=== PATIENT | female | born 1940 | race Caucasian/White ===

== ENCOUNTER → 2019-04-07 | Outpatient (CLI) | payer MEDICARE, BC ==
--- NOTE | 2019-04-07 13:26 | MM ---
Reason for exam: screening (asymptomatic). Last mammogram was performed 2 years and 9 months ago. History: Patient is postmenopausal, history of other cancer, and is nulliparous. Took estrogen for 34 years 4 months. Physical Findings: A clinical breast exam by your physician is recommended on an annual basis and results should be correlated with mammographic findings. MG 3D Screening Mammo W/Cad Bilateral CC and MLO view(s) were taken. Prior study comparison: July 02, 2016, bilateral MG 3d screening mammo w/cad. July 14, 2014, bilateral MG screening mammo w CAD. The breast tissue is heterogeneously dense. This may lower the sensitivity of mammography. There are benign appearing round vascular calcifications in the left breast. There is no discrete abnormality. ASSESSMENT: Benign, BI-RAD 2 RECOMMENDATION: Routine screening mammogram of both breasts in 1 year.
== END | disposition home or self-care (01) ==
LOC: RADMAMWWP 08:24
PROVIDERS: ATTEND Internal Medicine
DX: Z12.31 Encounter for screening mammogram for malignant neoplasm of breast (principal)
CPT/HCPCS: 77063; 77067

== ENCOUNTER → 2020-05-02 | Outpatient (CLI) | payer MEDICARE, BC ==
--- NOTE | 2020-05-02 09:58 | BD ---
EXAMINATION TYPE: Axial Bone Density DATE OF EXAM: 05/02/2020 COMPARISON: 07.02.2016 CLINICAL HISTORY: 79 YR OLD FEMALE....ICD-10 CODE: M85.9 DISORDER OF BONE Height: 60.8 Weight: 115 FRAX RISK QUESTIONS: Family History (Parent hip fracture): YES, BUT NO FX History of Fracture in Adulthood: YES Secondary Osteoporosis: YES 3. Menopause before 45: YES SURGICAL AT AGE 30 RISK FACTORS HISTORY OF: HX OF TIBIAL PLATEAU FX....AT ABOUT 58 YRS OLD Family History of Osteoporosis: YES, MOTHER AND SISTER, NO FX OF HIP Postmenopausal woman: YES, ABOUT AGE 30, SURGICAL Take estrogen and/or progesterone medications: YES FOR ABOUT 30 YRS STOPPED 10 YRS AGO Hyperparathyroidism: NO Adrenal Insufficiency: NO MEDICATIONS: Osteoporosis Medications: IN THE PAST FOSAMAX FOR ABOUT 5 YRS NOTHING NOW Additional Medications: STATIN FOR CHOLESTEROL, CALCIUM Additional History: NOTHING ADDITIONAL TO ADD HERE EXAM MEASUREMENTS: Bone mineral densitometry was performed using the [employer] System. Bone mineral density as measured about the Lumbar spine is: ----- L1-L4(G/cm2): 1.191 T Score Values are as follows: ----- L1: -1.7 ----- L2: -0.3 ----- L3: 1.4 ----- L4: 1.0 ----- L1-L4: 0.1 Bone mineral density has: Increased 4.2% since study of: 07.02.2016 Bone mineral density about the R hip (g/cm2): 0.890 Bone mineral density about the L hip (g/cm2): 0.942 T Score values are as follows: -----R Neck: -0.6 -----L Neck: -0.2 -----R Total: -0.9 -----L Total: -0.5 Bone mineral density has: Increased 0.3% since study of: 07.02.2016 FRAX%s: THERE IS A 13.2% CHANCE FOR A MAJOR OSTEOPOROTIC FX AND A 1.8% FOR HIP......PROBABILITY FO R FX IN 10 YRS TIME IMPRESSION: No evidence for osteoporosis or osteopenia. NOTE: T-SCORE=SD OF THE YOUNG ADULT MEAN.
== END | disposition home or self-care (01) ==
LOC: RADBDWWP 07:55
PROVIDERS: ATTEND Internal Medicine
DX: M85.9 Disorder of bone density and structure, unspecified (principal)
CPT/HCPCS: 77080

== ENCOUNTER → 2023-06-02 | Outpatient (CLI) | payer MEDICARE, BC ==
--- NOTE | 2023-06-02 20:09 | BD ---
EXAMINATION TYPE: Axial Bone Density DATE OF EXAM: 06/02/2023 CLINICAL HISTORY: 82 years old Female. ICD-10 CODE: M85.88 DISORDER OF BONE DENSITY Height: 5 ft 1 in Weight: 109 FRAX RISK QUESTIONS: Alcohol (3 or more units per day): no Family History (Parent hip fracture): no Glucocorticoids (More than 3mos): no (Ex: prednisone, prednisolone, methylprednisolone, dexamethasone, and hydrocortisone). History of Fracture in Adulthood: yes Secondary Osteoporosis: 1. Type 1 Diabetes: no 2. Hyperthyroidism: no 3. Menopause before 45: yes 4. Malnutrition: no 5. Chronic liver disease: no Rheumatoid Arthritis: no Current Tobacco Use: no RISK FACTORS HISTORY OF: Surgery to Spine/Hip(right/left)/Wrist (right/left): no Family History of Osteoporosis: yes Active: yes Diet low in dairy products/other sources of calcium: no Postmenopausal woman: yes Take estrogen and/or progesterone medications: none now Lost more than 2 inches in height since high school: no Frequent falls: no Poor Health: good Hyperparathyroidism: no Adrenal Insufficiency: no MEDICATIONS: Additional Medications: Atorvastatin, Additional History: EXAM MEASUREMENTS: Bone mineral densitometry was performed using the [employer]. Bone mineral density as measured about the Lumbar spine is: ----- L1-L4(G/cm2): 1.214 T Score Values are as follows: ----- L1: -1.8 ----- L2: -1.2 ----- L3: 0.9 ----- L4: 2.2 ----- L1-L4: 0.3 Z Score Values are as follows: ----- L1: 0.6 ----- L2: 1.2 ----- L3: 3.3 ----- L4: 4.6 ----- L1-L4: 2.6 Bone mineral density has: increased 1.9 % since study of: 2019 Bone mineral density about the R hip (g/cm2): 0.949 Bone mineral density about the L hip (g/cm2): 0.952 T Score values are as follows: -----R Neck: -0.6 -----L Neck: -0.6 -----R Total: -1.5 -----L Total: -1.1 Z Score values are as follows: -----R Neck: 1.9 -----L Neck: 1.9 -----R Total: 0.9 -----L Total: 1.3 Bone mineral density has: decreased -7.3 % since study of: 2019 FRAX%s: The graph provided illustrates a 13.4 % chance for a major osteoporotic fx and a 2.2 % chance for the hips probability for fx in 10 years time. IMPRESSION: Osteopenia (T Score between -2.5 and -1). There is slightly increased risk of fracture and the patient may be considered for treatment. Re-Screen 2-5 years. NOTE: T-SCORE=SD OF THE YOUNG ADULT MEAN.
--- NOTE | 2023-06-03 08:47 | MM ---
Reason for Exam: Screening (asymptomatic). Last mammogram was performed 4 year(s) and 2 month(s) ago. Patient History: Menarche at age 13. Patient has no children. Left ovary removed at age 31. Right ovary removed at age 31. Hysterectomy at age 31. Postmenopausal. Other cancer. Estrogen for 34 years, 4 months, until age 71. Risk Values: Sofi 5 year model risk: 2.0%. NCI Lifetime model risk: 3.1%. Prior Study Comparison: 07/14/2014 Bilateral Screening Mammogram, [facility]. 07/02/2016 Bilateral Screening Mammogram, [facility]. 04/07/2019 Bilateral Screening Mammogram, [facility]. Tissue Density: The breast tissue is heterogeneously dense. This may lower the sensitivity of mammography. Findings: Analyzed By CAD. There is no suspicious group of microcalcifications or new suspicious mass. Benign-appearing calcifications bilaterally. Overall Assessment: Benign, BI-RAD 2 Management: Screening Mammogram of both breasts in [address] [facility] will attempt to contact patient to return for supplemental views and ultrasound if indicated. Patient should continue monthly self-breast exams. A clinical breast exam by your physician is recommended on an annual basis. This exam should not preclude additional follow-up of suspicious palpable abnormalities. Note on Sofi scores and lifetime risk: 1. A Sofi score greater than 3% is considered moderate risk. If this is the case, consider specialist referral to assess eligibility for a risk reducing agent. 2. If overall lifetime risk for the development of breast cancer is 20% or higher, the patient may qualify for future screening with alternating mammogram and breast MRI. Electronically signed and approved by: Anson Pete DO
== END | disposition home or self-care (01) ==
LOC: RADBDWWP 05-15 15:38
PROVIDERS: ATTEND Family Medicine
DX: Z12.31 Encounter for screening mammogram for malignant neoplasm of breast (principal); M85.89 Other specified disorders of bone density and structure, multiple sites; Z78.0 Asymptomatic menopausal state
CPT/HCPCS: 77063; 77067; 77080

== ENCOUNTER → 2025-01-16 | Outpatient (CLI) | payer MEDICARE, BC ==
--- NOTE | 2025-01-16 17:06 | CA ---
Transthoracic Echo Report Name: Elizabeth Gaspar Age: 84 Gender: F : 1940 Exam Date: 01/16/2025 13:46 Exam Location: [facility] Ht (in): 62 Wt (lb): 108 Ordering Physician: Suzanne Doyle MD Attending/Referring Phys: Python Django Developer Shahrzad Krishnamurthy RDCS Procedure CPT: Indications: R01.1 cardiac murmur Cardiac Hx: Technical Quality: Good Contrast 1: Total Dose (mL): Contrast 2: Total Dose (mL): MEASUREMENTS (Male / Female) Normal Values 2D ECHO LV Diastolic Diameter PLAX 4.7 cm 4.2 - 5.9 / 3.9 - 5.3 cm LV Systolic Diameter PLAX 2.8 cm IVS Diastolic Thickness 0.9 cm 0.6 - 1.0 / 0.6 - 0.9 cm LVPW Diastolic Thickness 0.9 cm 0.6 - 1.0 / 0.6 - 0.9 cm LV Relative Wall Thickness 0.4 RV Internal Dim ED PLAX 2.8 cm LA Systolic Diameter LX 3.7 cm 3.0 - 4.0 / 2.7 - 3.8 cm LV Diastolic Volume MOD 4C 64.1 cm??? LV Systolic Volume MOD 4C 32.7 cm??? LV Ejection Fraction MOD 4C 49.0 % LV Cardiac Index MOD 4C 1418.8 cm???/min???m??? LV Diastolic Length 4C 6.7 cm LV Systolic Length 4C 5.4 cm LV Diastolic Volume MOD 2C 60.0 cm??? LV Systolic Volume MOD 2C 25.6 cm??? LV Ejection Fraction MOD 2C 57.3 % LV Cardiac Index MOD 2C 1553.3 cm???/min???m??? LV Diastolic Length 2C 6.3 cm LV Systolic Length 2C 5.0 cm M-MODE Aortic Root Diameter MM 3.0 cm AV Cusp Separation MM 2.1 cm DOPPLER AV Peak Velocity 105.4 cm/s AV Peak Gradient 4.4 mmHg Mitral E Point Velocity 77.8 cm/s Mitral A Point Velocity 60.0 cm/s Mitral E to A Ratio 1.3 MV Deceleration Time 180.2 ms MV E' Velocity 7.2 cm/s Mitral E to MV E' Ratio 10.9 TR Peak Velocity 181.9 cm/s TR Peak Gradient 13.2 mmHg Right Ventricular Systolic Press 23.3 mmHg FINDINGS Left Ventricle Left ventricular ejection fraction is estimated at 50-55 %. Left ventricular cavity size normal. Left ventricular wall thickness normal. No obvious regional wall motion abnormalities. Right Ventricle Normal right ventricular size. Right ventricular systolic pressure within normal limits. Right Atrium Normal right atrial size. No right atrial thrombus or mass seen. Left Atrium Normal left atrial size. No left atrial thrombus or mass present. Mitral Valve Structurally normal mitral valve. Elongation of the anterior mitral valve leaflet. [id number] mitral regurgitation with posterior flow. Aortic Valve Trileaflet aortic valve. Mild aortic regurgitation. Tricuspid Valve Structurally normal tricuspid valve. Mild tricuspid regurgitation. Pulmonic Valve Structurally normal pulmonic valve. Mild pulmonic regurgitation. Pericardium No pericardial effusion. Aorta Normal size aortic root and proximal ascending aorta. CONCLUSIONS Reason for test: Cardiac murmur Normal LV size and function Normal RV size and function redundant mitral valve leaflets with mild to moderate regurgitation No significant valvular heart disease Previewed by: Dr. Myles Arora MD (Electronically Signed) Final Date: 16 Jan 2025 17:06
== END | disposition home or self-care (01) ==
LOC: RADECHMAIN 13:38
PROVIDERS: ATTEND Family Medicine
DX: R01.1 Cardiac murmur, unspecified (principal); Q23.8 Other congenital malformations of aortic and mitral valves; I34.0 Nonrheumatic mitral (valve) insufficiency
CPT/HCPCS: 93306